=== PATIENT | female | born 1975 | race Two or more races ===

== ENCOUNTER 2021-07-07 11:04 | Outpatient (CLI) | payer OTHER | END 2021-07-07 11:19 | disposition home or self-care (01) | LOC: MAMO-SONO 11:04 | PROVIDERS: ATTEND Obstetrics & Gynecology | DX: N60.11 Diffuse cystic mastopathy of right breast (principal); N60.12 Diffuse cystic mastopathy of left breast; D25.9 Leiomyoma of uterus, unspecified ==

== ENCOUNTER 2022-08-04 11:12 | Outpatient (CLI) | payer OTHER | END 2022-08-04 11:16 | disposition home or self-care (01) | LOC: NUCLEAR 11:12 | PROVIDERS: ATTEND Internal Medicine Sports Medicine | DX: M81.0 Age-related osteoporosis without current pathological fracture (principal) ==

== ENCOUNTER 2023-10-18 11:58 | Outpatient (CLI) | payer OTHER | END 2023-10-18 12:04 | disposition home or self-care (01) | LOC: RAD 11:58 | PROVIDERS: ATTEND Physical Medicine & Rehabilitation | DX: M54.2 Cervicalgia (principal) ==